=== PATIENT | female | born 1945 | race African-American/Black ===

== ENCOUNTER → 2016-06-12 | Outpatient (CLI) | payer OTHER ==
[2016-02-22 11:54] VITALS: BP 114/83
[~2016-06-12] MED LIST: ALLO300T PO; AMLO10TA2 PO; CALC600T4 PO; CHOL20004 PO; FURO-68 PO; FURO-69 PO; GLIP5TAB22 PO; LATA2.5D3 EACHEYE; LISI-334 PO; METF750T2 PO; METO25TA9 PO; POTA20TA82 PO; SACU1TAB PO
--- NOTE | 2016-06-12 15:31 | CARD ---
APPROVED REPORT EXAM: Two-dimensional and M-mode echocardiogram with Doppler and color Doppler. Other Information Quality : Average Rhythm : RBBB INDICATION Cardiomyopathy 2D DIMENSIONS Left Atrium(2D)5.0 (1.6-4.0cm)IVSd1.0 (0.7-1.1cm) Aortic Root(2D)3.1 (2.0-3.7cm)LVDd5.8 (3.9-5.9cm) LVOT Diameter2.0 (1.8-2.4cm)PWd1.0 (0.7-1.1cm) LVDs5.1 (2.5-4.0cm)FS (%) 11.0 % SV39.0 mlLVEF(%)23.6 (>50%) Aortic Valve AoV Peak Tim.130.8cm/sAoV VTI19.8cm AO Peak GR.6.8mmHgLVOT Peak Tim.60.9cm/s LVOT VTI 9.78cmAO Mean GR.4mmHg AI P 1/2 [id number] Mitral Valve MV E Peak Gr.99mmHgMV DECEL [id number] MV E Mean Gr.2mmHgMV [id number] MVA (PHT)3.89cm2 Tricuspid Valve TR P. Pqaxrhjl572pb/sRAP [id number] TR Peak Gr.41atZqLWQS98hrGp LEFT VENTRICLE The left ventricle is normal size. There is normal left ventricular wall thickness. Left ventricle sy stolic function is severely impaired. The Ejection Fraction is 20-25%. There is global hypokinesis of the left ventricle. Unable to assess diastolic function. RIGHT VENTRICLE The right ventricle is normal size. The right ventricular systolic function is normal. ATRIA The left atrium is moderately dilated. The right atrium size is normal. The interatrial septum is int act with no evidence for an atrial septal defect or patent foramen ovale as noted on 2-D or Doppler i maging. AORTIC VALVE The aortic valve is not well visualized. Doppler and Color Flow revealed moderate aortic regurgitatio n. There is no significant aortic valvular stenosis. MITRAL VALVE The mitral valve leaflets are thickened. There is no mitral valve stenosis. Doppler and Color Flow re vealed severe mitral regurgitation. TRICUSPID VALVE The tricuspid valve is normal in structure. Doppler and Color Flow revealed moderate tricuspid regurg itation. There is moderate to severe pulmonary hypertension. The PA pressure was estimated at 63 mmHg . There is no tricuspid valve stenosis. PULMONIC VALVE The pulmonic valve is not well visualized. Doppler and Color Flow revealed no pulmonic valvular regur gitation. GREAT VESSELS The aortic root is normal in size. Systolic flow reversal (suggestive of severe MR) in the pulmonary veins. The IVC is dilated and collapses <50% with inspiration. PERICARDIAL EFFUSION There is a trace pericardial effusion. Critical Notification Critical Value: No <Conclusion> Left ventricle systolic function is severely impaired. The Ejection Fraction is 20-25%. Moderate aortic regurgitation. Severe mitral regurgitation. Moderate tricuspid regurgitation. Moderate to severe pulmonary hypertension. The PA pressure was estimated at 63 mmHg. There is a trace pericardial effusion.
== END | disposition home or self-care (01) ==
LOC: ECHO 07:34
PROVIDERS: ATTEND Internal Medicine Cardiovascular Disease
DX: I42.9 Cardiomyopathy, unspecified (principal); I08.3 Combined rheumatic disorders of mitral, aortic and tricuspid valves; I27.2 Other secondary pulmonary hypertension; I31.3 Pericardial effusion (noninflammatory)
CPT/HCPCS: 93306

== ENCOUNTER → 2016-11-29 | Outpatient (CLI) | payer OTHER ==
[2016-11-13 11:00] VITALS: BP 99/59
[~2016-11-29] MED LIST changes: -CHOL20004 PO; +CHOL200074 PO; +METO-239 PO; -METO25TA9 PO
--- NOTE | 2016-11-29 15:44 | RAD ---
DATE: 11/29/2016 EXAM: DIGITAL SCREEN BILAT W/CAD HISTORY: Previous left breast cancer with implant COMPARISON: 10/31/2015 This study was interpreted with the benefit of Computerized Aided Detection (CAD). The breast parenchyma shows scattered fibroglandular densities. Breast parenchyma level B. FINDINGS: The left breast implant is unchanged. There is very little overlying breast tissue no left breast mass is seen. Diffuse skin thickening has developed on the right. The right breast parenchymal densities have generally increased. No discrete right breast mass is seen. There are benign type calcifications in the right breast. No malignant microcalcifications have developed. IMPRESSION: 1. Generalized increased parenchymal density has developed in the right breast as well as diffuse right breast skin thickening A systemic process such as congestive heart failure or anasarca is suspected. Mastitis or inflammatory breast cancer cannot be excluded. Clinical correlation and follow-up is suggested. 2. Stable postsurgical findings on the left. BI-RADS CATEGORY: 3 PROBABLY BENIGN FINDING(S)-SHORT INTERVAL FOLLOW-UP SUGGESTED RECOMMENDED FOLLOW-UP: CLIN FOLLOW UP IMAGING CLINICALLY INDICATED PQRS compliance statement: Patient information was entered into a reminder system with a target due date for the next mammogram. Mammography is a sensitive method for finding small breast cancers, but it does not detect them all and is not a substitute for careful clinical examination. A negative mammogram does not negate a clinically suspicious finding and should not result in delay in biopsying a clinically suspicious abnormality. "Our facility is accredited by the [employer] Mammography [employer]."
== END | disposition home or self-care (01) ==
LOC: MAMMO 13:24
PROVIDERS: ATTEND Internal Medicine Hematology & Oncology
DX: Z12.31 Encounter for screening mammogram for malignant neoplasm of breast (principal); Z85.3 Personal history of malignant neoplasm of breast
CPT/HCPCS: G0202; 77067

== ENCOUNTER → 2017-01-31 | Outpatient (CLI) | payer OTHER ==
[2016-11-13 11:00] VITALS: BP 99/59
--- NOTE | 2017-01-31 12:29 | KCIC ---
CT of the head without contrast 01/31/2017: HISTORY: Memory loss, possible CVA There is moderate cerebral atrophy. There are mild patchy lucencies in the deep white matter bilaterally compatible with chronic ischemic change. The ventricles are within normal limits in size. There is no shift of the midline structures. There is no evidence of acute intracranial hemorrhage or mass effect. IMPRESSION: 1. Cerebral atrophy. 2. Mild patchy deep white matter lucencies compatible with chronic ischemic change. 3. No acute intracranial abnormality is detected. Electronically signed by: Ebenezer Mendez MD (01/31/2017 12:26 PM) [facility]
== END | disposition home or self-care (01) ==
LOC: KCIC CT 10:31
PROVIDERS: ATTEND Family Medicine
DX: G31.9 Degenerative disease of nervous system, unspecified (principal); R90.82 White matter disease, unspecified
CPT/HCPCS: 70450

== ENCOUNTER → 2017-02-19 | Outpatient (CLI) | payer OTHER ==
[2017-02-07 23:36] VITALS: BP 114/71
[~2017-02-19] MED LIST changes: +FURO80TA72 PO; +PANT40TA5 PO
--- NOTE | 2017-02-19 15:48 | RAD ---
Renal sonography History: Chronic renal failure. Findings: The longitudinal and AP and transverse dimensions of the right kidney are 8.3 cm and 3.9 cm and 4.8 cm respectively. There is a cyst of the mid aspect of the right kidney measuring 1.2 cm in size. Increased cortical echogenicity of the right kidney is seen. The longitudinal and AP and transverse dimensions of the left kidney are 8.8 cm and 4.5 cm and 4.4 cm respectively. There is a prominent cyst of the mid aspect of the left kidney measuring 6.6 cm which extends laterally. There is another smaller cyst within the mid aspect measuring 1.5 cm. Increase in cortical echogenicity of the left kidney is seen. There is an echodensity within the lower pole of the left kidney consistent with a stone. This measures 5 mm in size. No hydronephrosis is seen on either side. The urinary bladder is moderately distended. No intraluminal echodensities or masses are seen. Before voiding, the urinary bladder volume is 333 cc. After voiding, the urinary bladder is empty. A small amount of ascites is present. IMPRESSION: No hydronephrosis on either side. Increase in cortical echogenicity of both kidneys may be seen with medical renal disease or older age. Bilateral renal cysts. Small amount of ascites.
== END | disposition home or self-care (01) ==
LOC: US 11:11
PROVIDERS: ATTEND Internal Medicine Nephrology
DX: N18.9 Chronic kidney disease, unspecified (principal); N28.1 Cyst of kidney, acquired; R18.8 Other ascites
CPT/HCPCS: 76770

== ENCOUNTER → 2017-03-01 | Outpatient (CLI) | payer OTHER, MEDICARE ==
[2017-03-01 13:26] LABS: ANION GAP 16 (6-14); BLOOD UREA NITROGEN 70 mg/dL (7-20); CALCIUM 9.3 mg/dL (8.5-10.1); CARBON DIOXIDE 21 mmol/L (21-32); CHLORIDE 107 mmol/L (98-107); CREATININE 3.3 mg/dL (0.6-1.0); GFR 16.6; GLUCOSE 122 mg/dL (70-99); MAGNESIUM 2.7 mg/dL (1.8-2.4); POTASSIUM 4.9 mmol/L (3.5-5.1); SODIUM 144 mmol/L (136-145)
== END ==
LOC: LAB 12:57
DX: I23.0 Hemopericardium as current complication following acute myocardial infarction (principal)
CPT/HCPCS: 36415; 80048; 83735

== ENCOUNTER 2017-03-06 09:46 | Inpatient (IN) | payer OTHER, MEDICARE ==
[2017-03-06 10:55] LABS: ADD MAN DIFF? NO
[2017-03-06 10:59] LABS: BASO % 1 % (0-3); EOS % 1 % (0-3); HEMATOCRIT 27.5 % (36.0-47.0); HEMOGLOBIN 8.6 g/dL (12.0-15.5); LYMPH # 0.9 x10^3/uL (1.0-4.8); LYMPH % 14 % (24-48); MEAN CORPUSCULAR HEMOGLOBIN 27 pg (25-35); MEAN CORPUSCULAR HGB CONC 31 g/dL (31-37); MEAN CORPUSCULAR VOLUME 87 fL (79-100); MONO # 0.4 x10^3/uL (0.0-1.1); MONO % 6 % (0-9); NEUT % 79 % (31-73); PLATELET COUNT 180 x10^3/uL (140-400); RED BLOOD COUNT 3.17 x10^6/uL (3.50-5.40); WHITE BLOOD COUNT 6.4 x10^3/uL (4.0-11.0)
[2017-03-06 11:17] LABS: ANION GAP 18 (6-14); BLOOD UREA NITROGEN 83 mg/dL (7-20); BUN/CREATININE RATIO 22 (6-20); CALCIUM 9.3 mg/dL (8.5-10.1); CARBON DIOXIDE 18 mmol/L (21-32); CHLORIDE 103 mmol/L (98-107); CREATININE 3.7 mg/dL (0.6-1.0); GFR 14.5; GLUCOSE 118 mg/dL (70-99); POTASSIUM 4.9 mmol/L (3.5-5.1); SODIUM 139 mmol/L (136-145)
[2017-03-06 11:25] LABS: ALBUMIN 3.1 g/dL (3.4-5.0); ALBUMIN/GLOBULIN RATIO 0.9 (1.0-1.7); ALK PHOS 142 U/L (46-116); ALT (SGPT) 20 U/L (14-59); AST (SGOT) 87 U/L (15-37); MAGNESIUM 2.9 mg/dL (1.8-2.4); TOTAL BILIRUBIN 1.6 mg/dL (0.2-1.0); TOTAL PROTEIN 6.7 g/dL (6.4-8.2)
[2017-03-06 11:27] LABS: TROPONINI 0.133 ng/mL (0.000-0.055)
[2017-03-06 11:28] LABS: NT-PRO BNP 19378 pg/mL (0-124)
[2017-03-06] MEDS ORDERED: ONDANSETRON PF 4 MG/2 ML VIAL. IV ×2 (12:00→14:30)
[2017-03-06 12:22] LABS: INFLUENZA A PATIENT NEGATIVE (NEGATIVE); INFLUENZA B PATIENT NEGATIVE (NEGATIVE); OBC FLU VALID
[2017-03-06] MEDS: fentaNYL PF VIAL 100 MCG/2 ML VIAL IV ×2 (12:30→19:49)
[2017-03-06] MEDS ORDERED: DEXTROSE 50% 25 GM / 50ML DISP.SYRIN. IV (14:30)
[2017-03-06] MEDS: PANTOPRAZOLE 40 MG TABLET.DR. PO (16:04)
[2017-03-06] MEDS: IV NORMAL SALINE 1000ML BAG 1,000 ML IV (16:04)
[2017-03-06] MEDS: INSULIN ASPART 300 UNITS/3 ML INSULN.PEN SQ (17:00)
[2017-03-06 17:13] LABS: POC GLUCOSE 88 mg/dL (70-99)
[2017-03-06 19:32] LABS: TROPONINI 0.147 ng/mL (0.000-0.055)
[2017-03-06] MEDS: MILRINONE 20MG/100ML PREMIX 100 ML IV (19:44)
[2017-03-06 21:22] LABS: POC GLUCOSE 122 mg/dL (70-99)
[2017-03-06 21:24] LABS: BILIRUBIN,URINE NEGATIVE (NEG); CLARITY,URINE CLEAR; COLOR,URINE YELLOW; GLUCOSE,URINE NEGATIVE (NEG); NITRITE,URINE NEGATIVE (NEG); PH,URINE 5.5; PROTEIN,URINE NEGATIVE (NEG-TRACE)
[2017-03-06 21:29] LABS: AMORPHOUS SEDIMENT,UR PRESENT /HPF; BACTERIA,URINE 0 /HPF (0-FEW); HYALINE CASTS, URINE MODERATE /HPF; RBC,URINE 0 /HPF (0-2); SQUAMOUS EPITHELIAL CELL,UR FEW /LPF; WBC,URINE 0 /HPF (0-4)
[2017-03-06] MEDS: oxyCODONE/APAP 5/325 1 TAB TABLET PO (21:56)
[2017-03-06] MEDS: LATANOPROST 0.005% OPHTH SOLUTION 2.5ML BOTTLE. OU (21:57)
[2017-03-07 01:00] LABS: TROPONINI 0.088 ng/mL (0.000-0.055)
[2017-03-07 05:04] LABS: ANION GAP 13 (6-14); BLOOD UREA NITROGEN 81 mg/dL (7-20); CALCIUM 8.6 mg/dL (8.5-10.1); CARBON DIOXIDE 20 mmol/L (21-32); CHLORIDE 105 mmol/L (98-107); CREATININE 3.7 mg/dL (0.6-1.0); GFR 14.5; GLUCOSE 125 mg/dL (70-99); POTASSIUM 4.5 mmol/L (3.5-5.1); SODIUM 138 mmol/L (136-145)
[2017-03-07] MEDS: IV NORMAL SALINE 1000ML BAG 1,000 ML IV ×3 (05:58→16:14)
[2017-03-07] MEDS ORDERED: glipiZIDE ER 2.5 MG TAB.ER.24 PO (08:00)
[2017-03-07 08:19] LABS: POC GLUCOSE 102 mg/dL (70-99)
[2017-03-07] MEDS: INSULIN ASPART 300 UNITS/3 ML INSULN.PEN SQ ×3 (09:46→16:50)
[2017-03-07] MEDS: CHOLECALCIFEROL (VITAMIN D3) 1,000 UNIT TABLET PO (10:17)
[2017-03-07] MEDS: ALLOPURINOL 300 MG TABLET. PO (10:17)
[2017-03-07] MEDS: CALCIUM CARBONATE 500 MG TABLET PO (10:17)
[2017-03-07] MEDS: oxyCODONE/APAP 5/325 1 TAB TABLET PO ×2 (10:17→20:42)
[2017-03-07] MEDS: PANTOPRAZOLE 40 MG TABLET.DR. PO ×2 (10:17→16:16)
[2017-03-07] MEDS: METOPROLOL SUCC 24HR ER 25 MG TAB.ER.24H. PO (10:19)
[2017-03-07 11:54] LABS: POC GLUCOSE 115 mg/dL (70-99)
[2017-03-07 15:22] LABS: INR 1.6 (0.8-1.1); PROTHROMBIN TIME PATIENT 18.2 SEC (11.7-14.0)
[2017-03-07 16:38] LABS: POC GLUCOSE 119 mg/dL (70-99)
[2017-03-07] MEDS ORDERED: FUROSEMIDE 40 MG/4 ML VIAL. IVP (17:30)
[2017-03-07 18:04] LABS: BILIRUBIN,URINE LARGE (NEG); COLOR,URINE RED; GLUCOSE,URINE NEGATIVE (NEG); NITRITE,URINE POSITIVE (NEG); PROTEIN,URINE 100 mg/dL (NEG-TRACE)
[2017-03-07 18:27] LABS: CLARITY,URINE BLOODY; RBC,URINE TNTC /HPF (0-2)
[2017-03-07 18:28] LABS: BACTERIA,URINE FEW /HPF (0-FEW); SQUAMOUS EPITHELIAL CELL,UR OCC /LPF
[2017-03-07] MEDS ORDERED: EPINEPHrine VIAL 8 MG in IV NORMAL SALINE 250ML 250 ML IV (18:30)
[2017-03-07] MEDS: FUROSEMIDE 40 MG/4 ML VIAL. IVP (20:42)
[2017-03-07] MEDS: LATANOPROST 0.005% OPHTH SOLUTION 2.5ML BOTTLE. OU (20:42)
[2017-03-07 21:10] LABS: POC GLUCOSE 106 mg/dL (70-99)
[2017-03-08] MEDS: MILRINONE 20MG/100ML PREMIX 100 ML IV (02:19)
[2017-03-08] MEDS: oxyCODONE/APAP 5/325 1 TAB TABLET PO ×2 (04:18→22:18)
[2017-03-08 08:00] LABS: POC GLUCOSE 65 mg/dL (70-99)
[2017-03-08] MEDS: INSULIN ASPART 300 UNITS/3 ML INSULN.PEN SQ (08:00)
[2017-03-08 08:19] LABS: POC GLUCOSE 60 mg/dL (70-99)
[2017-03-08 08:38] LABS: ANION GAP 12 (6-14); BLOOD UREA NITROGEN 74 mg/dL (7-20); CALCIUM 8.7 mg/dL (8.5-10.1); CARBON DIOXIDE 22 mmol/L (21-32); CHLORIDE 105 mmol/L (98-107); CREATININE 3.5 mg/dL (0.6-1.0); GFR 15.5; GLUCOSE 62 mg/dL (70-99); POTASSIUM 4.2 mmol/L (3.5-5.1); SODIUM 139 mmol/L (136-145)
[2017-03-08] MEDS: CHOLECALCIFEROL (VITAMIN D3) 1,000 UNIT TABLET PO (09:10)
[2017-03-08] MEDS: PANTOPRAZOLE 40 MG TABLET.DR. PO ×2 (09:10→16:30)
[2017-03-08] MEDS: ALLOPURINOL 300 MG TABLET. PO (09:10)
[2017-03-08] MEDS: CALCIUM CARBONATE 500 MG TABLET PO (09:11)
[2017-03-08] MEDS: METOPROLOL SUCC 24HR ER 25 MG TAB.ER.24H. PO (09:11)
[2017-03-08] MEDS: ACETAMINOPHEN 500 MG TABLET PO (09:11)
[2017-03-08 11:32] LABS: POC GLUCOSE 69 mg/dL (70-99)
[2017-03-08 11:40] LABS: CREATINE KINASE 177 U/L (26-192)
[2017-03-08] MEDS: tiZANidine 4 MG TABLET. PO ×2 (11:44→21:00)
[2017-03-08] MEDS ORDERED: NOREPINEPHRIN PREMIX 250 ML IV (17:30)
[2017-03-08] MEDS: NOREPINEPHRIN PREMIX 250 ML IV (19:54)
[2017-03-08] MEDS: LATANOPROST 0.005% OPHTH SOLUTION 2.5ML BOTTLE. OU (22:18)
[2017-03-09] MEDS: AMIODARONE 75 MG in IV DEXTROSE 5% 100 ML IV (00:27)
[2017-03-09] MEDS: AMIODARONE 900 MG in IV DEXTROSE 5% 500 ML IV (00:44)
[2017-03-09] MEDS: NOREPINEPHRIN PREMIX 250 ML IV (01:33)
[2017-03-09 04:37] LABS: BASE EXCESS ABG -7 mmol/L (-3-3); HCO3 ABG 18 mmol/L (21-28); PCO2 ABG 32 mmHg (35-46); SAT O2 ABG 76 % (92-99)
[2017-03-09 05:04] LABS: PO2 ABG 44 mmHg (65-108)
[2017-03-09 05:05] LABS: PH ABG 7.35 (7.35-7.45)
[2017-03-09 07:07] LABS: ADD MAN DIFF? NO
[2017-03-09 07:22] LABS: BASO % 0 % (0-3); EOS # 0.1 x10^3/uL (0.0-0.7); EOS % 1 % (0-3); HEMOGLOBIN 8.4 g/dL (12.0-15.5); LYMPH # 0.6 x10^3/uL (1.0-4.8); LYMPH % 6 % (24-48); MEAN CORPUSCULAR HEMOGLOBIN 27 pg (25-35); MEAN CORPUSCULAR HGB CONC 30 g/dL (31-37); MEAN CORPUSCULAR VOLUME 89 fL (79-100); MONO # 0.9 x10^3/uL (0.0-1.1); MONO % 8 % (0-9); NEUT # 9.3 x10^3uL (1.8-7.7); NEUT % 85 % (31-73); PLATELET COUNT 155 x10^3/uL (140-400); RED BLOOD COUNT 3.14 x10^6/uL (3.50-5.40); RED CELL DISTRIBUTION WIDTH 20.5 % (11.5-14.5)
[2017-03-09 07:27] LABS: ANION GAP 14 (6-14); BLOOD UREA NITROGEN 78 mg/dL (7-20); CALCIUM 8.8 mg/dL (8.5-10.1); CARBON DIOXIDE 20 mmol/L (21-32); CHLORIDE 103 mmol/L (98-107); CREATININE 3.5 mg/dL (0.6-1.0); GFR 15.5; GLUCOSE 131 mg/dL (70-99); POTASSIUM 4.5 mmol/L (3.5-5.1); SODIUM 137 mmol/L (136-145)
[2017-03-09 07:36] LABS: LACTIC ACID 1.2 mmol/L (0.4-2.0)
[2017-03-09] MEDS: METOPROLOL SUCC 24HR ER 25 MG TAB.ER.24H. PO (09:00)
[2017-03-09] MEDS: CHOLECALCIFEROL (VITAMIN D3) 1,000 UNIT TABLET PO (09:06)
[2017-03-09] MEDS: tiZANidine 4 MG TABLET. PO ×3 (09:06→21:43)
[2017-03-09] MEDS: ALLOPURINOL 300 MG TABLET. PO (09:06)
[2017-03-09] MEDS: PANTOPRAZOLE 40 MG TABLET.DR. PO ×2 (09:06→18:29)
[2017-03-09] MEDS: CALCIUM CARBONATE 500 MG TABLET PO (09:07)
[2017-03-09 12:58] LABS: POC GLUCOSE 133 mg/dL (70-99)
[2017-03-09] MEDS: MILRINONE 20MG/100ML PREMIX 100 ML IV (18:27)
[2017-03-09] MEDS: LATANOPROST 0.005% OPHTH SOLUTION 2.5ML BOTTLE. OU (21:43)
[2017-03-10 00:07] LABS: MRSA BY PCR Negative (Negative)
[2017-03-10] MEDS: AMIODARONE 900 MG in IV DEXTROSE 5% 500 ML IV (02:12)
[2017-03-10 06:45] LABS: POC GLUCOSE 172 mg/dL (70-99)
[2017-03-10] MEDS ORDERED: ONDANSETRON PF 4 MG/2 ML VIAL. IV (08:15)
[2017-03-10] MEDS: CALCIUM CARBONATE 500 MG TABLET PO (09:05)
[2017-03-10] MEDS: PANTOPRAZOLE 40 MG TABLET.DR. PO ×2 (09:05→16:30)
[2017-03-10] MEDS: ALLOPURINOL 300 MG TABLET. PO (09:05)
[2017-03-10] MEDS: tiZANidine 4 MG TABLET. PO ×3 (09:05→21:08)
[2017-03-10] MEDS: CHOLECALCIFEROL (VITAMIN D3) 1,000 UNIT TABLET PO (09:05)
[2017-03-10] MEDS: SODIUM BICARBONATE 650 MG TABLET. PO ×3 (10:00→21:08)
[2017-03-10] MEDS: DOCUSATE SODIUM 100 MG CAPSULE. PO ×2 (10:00→21:08)
[2017-03-10] MEDS ORDERED: BISACODYL 10 MG SUPP.RECT. PR (10:00)
[2017-03-10] MEDS: MORPHINE SULFATE 2 MG/ML DISP.SYRIN. IV (11:32)
[2017-03-10] MEDS: FUROSEMIDE 40 MG/4 ML VIAL. IVP ×2 (12:00→18:39)
[2017-03-10] MEDS: LIDOCAINE WITH 8.4% SOD BICARB 3 ML DISP.SYRIN. IJ (13:00)
[2017-03-10] MEDS ORDERED: LIDOCAINE WITH 8.4% SOD BICARB 3 ML DISP.SYRIN. IJ (13:57)
[2017-03-10] MEDS ORDERED: HEPARIN for IV BOLUS 10,000 UNIT/10 ML VIAL. (13:58)
[2017-03-10] MEDS ORDERED: HEPARIN PF for SUB-Q USE 5,000 UNIT/0.5 ML VIAL. SQ (14:00)
[2017-03-10] MEDS: cefTRIAXone IV Push 1 GM VIAL. IVP (18:29)
[2017-03-10] MEDS: HEPARIN PF for SUB-Q USE 5,000 UNIT/0.5 ML VIAL. SQ ×2 (18:34→21:18)
[2017-03-10 18:44] LABS: BASO % 0 % (0-3); EOS # 0.1 x10^3/uL (0.0-0.7); EOS % 2 % (0-3); HEMATOCRIT 24.9 % (36.0-47.0); HEMOGLOBIN 7.8 g/dL (12.0-15.5); LYMPH # 0.4 x10^3/uL (1.0-4.8); LYMPH % 6 % (24-48); MEAN CORPUSCULAR HEMOGLOBIN 27 pg (25-35); MEAN CORPUSCULAR HGB CONC 32 g/dL (31-37); MEAN CORPUSCULAR VOLUME 86 fL (79-100); MONO # 0.5 x10^3/uL (0.0-1.1); MONO % 7 % (0-9); NEUT # 5.9 x10^3uL (1.8-7.7); NEUT % 85 % (31-73); PLATELET COUNT 118 x10^3/uL (140-400); RED BLOOD COUNT 2.89 x10^6/uL (3.50-5.40); RED CELL DISTRIBUTION WIDTH 19.9 % (11.5-14.5); WHITE BLOOD COUNT 6.9 x10^3/uL (4.0-11.0)
[2017-03-10 18:45] LABS: ADD MAN DIFF? YES
[2017-03-10 18:52] LABS: INR 1.4 (0.8-1.1); PROTHROMBIN TIME PATIENT 16.1 SEC (11.7-14.0)
[2017-03-10 19:00] LABS: ANION GAP 11 (6-14); BLOOD UREA NITROGEN 69 mg/dL (7-20); CALCIUM 7.7 mg/dL (8.5-10.1); CARBON DIOXIDE 21 mmol/L (21-32); CHLORIDE 106 mmol/L (98-107); GFR 18.5; GLUCOSE 127 mg/dL (70-99); MAGNESIUM 2.4 mg/dL (1.8-2.4); PHOSPHORUS 4.4 mg/dL (2.6-4.7); POTASSIUM 3.6 mmol/L (3.5-5.1); SODIUM 138 mmol/L (136-145)
[2017-03-10 19:52] LABS: % BANDS 10 % (0-9); % EOS 1 % (0-5); % LYMPHS 1 % (24-48); % SEGS 88 % (35-66); HYPOCHROMIA SLIGHT; MICROCYTOSIS SLIGHT; PLT ESTIMATE DECREASED (ADEQUATE); POIKILOCYTOSIS SLIGHT; POLYCHROMASIA SLIGHT
[2017-03-10 19:53] LABS: BURR CELLS OCC; OVALOCYTES OCC; SCHISTOCYTES OCC; TARGET CELLS OCC
[2017-03-10 19:54] LABS: ROULEAUX PRESENT
[2017-03-10] MEDS: IV NORMAL SALINE 1000ML BAG 1,000 ML MC ×2 (21:08→21:09)
[2017-03-10] MEDS: LATANOPROST 0.005% OPHTH SOLUTION 2.5ML BOTTLE. OU (21:08)
[2017-03-10] MEDS: MILRINONE 20MG/100ML PREMIX 100 ML IV (22:18)
[2017-03-11] MEDS: IV NORMAL SALINE 1000ML BAG 1,000 ML MC ×12 (01:58→23:15)
[2017-03-11 05:49] LABS: ADD MAN DIFF? NO
[2017-03-11 06:02] LABS: MAGNESIUM 2.3 mg/dL (1.8-2.4)
[2017-03-11 06:13] LABS: BASO % 1 % (0-3); EOS # 0.1 x10^3/uL (0.0-0.7); EOS % 2 % (0-3); HEMATOCRIT 22.6 % (36.0-47.0); HEMOGLOBIN 7.1 g/dL (12.0-15.5); LYMPH # 0.4 x10^3/uL (1.0-4.8); LYMPH % 7 % (24-48); MEAN CORPUSCULAR HEMOGLOBIN 26 pg (25-35); MEAN CORPUSCULAR HGB CONC 31 g/dL (31-37); MEAN CORPUSCULAR VOLUME 84 fL (79-100); MONO # 0.4 x10^3/uL (0.0-1.1); MONO % 7 % (0-9); NEUT # 4.1 x10^3uL (1.8-7.7); NEUT % 83 % (31-73); PLATELET COUNT 105 x10^3/uL (140-400); RED BLOOD COUNT 2.69 x10^6/uL (3.50-5.40); RED CELL DISTRIBUTION WIDTH 19.7 % (11.5-14.5); WHITE BLOOD COUNT 4.9 x10^3/uL (4.0-11.0)
[2017-03-11] MEDS: DOCUSATE SODIUM 100 MG CAPSULE. PO ×2 (07:35→20:56)
[2017-03-11] MEDS: CHOLECALCIFEROL (VITAMIN D3) 1,000 UNIT TABLET PO (07:35)
[2017-03-11] MEDS: SODIUM BICARBONATE 650 MG TABLET. PO ×3 (07:35→20:56)
[2017-03-11] MEDS: PANTOPRAZOLE 40 MG TABLET.DR. PO ×2 (07:35→16:30)
[2017-03-11] MEDS: CALCIUM CARBONATE 500 MG TABLET PO (07:36)
[2017-03-11] MEDS: tiZANidine 4 MG TABLET. PO ×3 (07:36→20:56)
[2017-03-11] MEDS: ALLOPURINOL 300 MG TABLET. PO (07:36)
[2017-03-11] MEDS: MORPHINE SULFATE 2 MG/ML DISP.SYRIN. IV ×2 (07:37→18:45)
[2017-03-11] MEDS: HEPARIN PF for SUB-Q USE 5,000 UNIT/0.5 ML VIAL. SQ ×2 (07:40→20:58)
[2017-03-11 07:59] LABS: ALBUMIN 1.9 g/dL (3.4-5.0); ANION GAP 13 (6-14); BLOOD UREA NITROGEN 64 mg/dL (7-20); CALCIUM 7.6 mg/dL (8.5-10.1); CARBON DIOXIDE 18 mmol/L (21-32); CHLORIDE 106 mmol/L (98-107); CREATININE 2.9 mg/dL (0.6-1.0); GFR 19.2; GLUCOSE 106 mg/dL (70-99); PHOSPHORUS 4.6 mg/dL (2.6-4.7); POTASSIUM 3.8 mmol/L (3.5-5.1); SODIUM 137 mmol/L (136-145)
[2017-03-11] MEDS: cefTRIAXone IV Push 1 GM VIAL. IVP (18:45)
[2017-03-11] MEDS: LACTOBACILLUS RHAMNOSUS GG 1 CAPSULE. PO (20:56)
[2017-03-11] MEDS: DARBEPOETIN ALFA 60 MCG/0.3 ML DISP.SYRIN. SQ (20:56)
[2017-03-11] MEDS: LATANOPROST 0.005% OPHTH SOLUTION 2.5ML BOTTLE. OU (20:57)
[2017-03-11] MEDS: NOREPINEPHRIN PREMIX 250 ML IV (20:58)
[2017-03-12] MEDS: IV NORMAL SALINE 1000ML BAG 1,000 ML MC ×10 (00:07→23:22)
[2017-03-12] MEDS: MORPHINE SULFATE 2 MG/ML DISP.SYRIN. IV (00:08)
[2017-03-12 01:13] LABS: HEP B SURFACE ABDY Reactive (.); HEP B SURFACE AG Negative (Negative)
[2017-03-12] MEDS: MILRINONE 20MG/100ML PREMIX 100 ML IV (03:03)
[2017-03-12 05:32] LABS: ADD MAN DIFF? NO
[2017-03-12 05:57] LABS: BASO % 1 % (0-3); EOS # 0.1 x10^3/uL (0.0-0.7); EOS % 1 % (0-3); HEMATOCRIT 23.6 % (36.0-47.0); HEMOGLOBIN 7.3 g/dL (12.0-15.5); LYMPH # 0.6 x10^3/uL (1.0-4.8); LYMPH % 10 % (24-48); MEAN CORPUSCULAR HEMOGLOBIN 27 pg (25-35); MEAN CORPUSCULAR HGB CONC 31 g/dL (31-37); MEAN CORPUSCULAR VOLUME 87 fL (79-100); MONO # 0.5 x10^3/uL (0.0-1.1); MONO % 8 % (0-9); NEUT % 80 % (31-73); PLATELET COUNT 102 x10^3/uL (140-400); RED BLOOD COUNT 2.73 x10^6/uL (3.50-5.40); RED CELL DISTRIBUTION WIDTH 20.2 % (11.5-14.5); WHITE BLOOD COUNT 6.2 x10^3/uL (4.0-11.0)
[2017-03-12 06:04] LABS: ALBUMIN/GLOBULIN RATIO 0.6 (1.0-1.7); ALK PHOS 130 U/L (46-116); ALT (SGPT) 11 U/L (14-59); ANION GAP 14 (6-14); AST (SGOT) 28 U/L (15-37); BLOOD UREA NITROGEN 57 mg/dL (7-20); BUN/CREATININE RATIO 21 (6-20); CALCIUM 7.4 mg/dL (8.5-10.1); CARBON DIOXIDE 15 mmol/L (21-32); CHLORIDE 110 mmol/L (98-107); CREATININE 2.7 mg/dL (0.6-1.0); GFR 20.9; GLUCOSE 74 mg/dL (70-99); POTASSIUM 3.4 mmol/L (3.5-5.1); SODIUM 139 mmol/L (136-145); TOTAL BILIRUBIN 0.8 mg/dL (0.2-1.0); TOTAL PROTEIN 5.4 g/dL (6.4-8.2)
[2017-03-12] MEDS: POTASSIUM CHLORIDE 20 MEQ TABLET.ER. PO (08:48)
[2017-03-12] MEDS: CHOLECALCIFEROL (VITAMIN D3) 1,000 UNIT TABLET PO (08:48)
[2017-03-12] MEDS: ALLOPURINOL 300 MG TABLET. PO (08:48)
[2017-03-12] MEDS: DOCUSATE SODIUM 100 MG CAPSULE. PO ×2 (08:48→20:54)
[2017-03-12] MEDS: LACTOBACILLUS RHAMNOSUS GG 1 CAPSULE. PO ×2 (08:48→20:54)
[2017-03-12] MEDS: PANTOPRAZOLE 40 MG TABLET.DR. PO ×2 (08:48→16:30)
[2017-03-12] MEDS: CALCIUM CARBONATE 500 MG TABLET PO (08:49)
[2017-03-12] MEDS: tiZANidine 4 MG TABLET. PO ×3 (08:49→20:55)
[2017-03-12] MEDS: SODIUM BICARBONATE 650 MG TABLET. PO ×3 (08:51→20:54)
[2017-03-12] MEDS ORDERED: POTASSIUM CHLORIDE 20MEQ 50 ML IV (11:00)
[2017-03-12] MEDS ORDERED: MAGNESIUM SULFATE 2GM 50 ML IV (11:00)
[2017-03-12 11:09] LABS: POC GLUCOSE 55 mg/dL (70-99)
[2017-03-12] MEDS: cefTRIAXone IV Push 1 GM VIAL. IVP (13:14)
[2017-03-12] MEDS: DEXTROSE 5% IV ×3 (13:15→22:33)
[2017-03-12] MEDS: SODIUM BICARBONATE IV ×3 (13:15→22:33)
[2017-03-12] MEDS: HEPARIN PF for SUB-Q USE 5,000 UNIT/0.5 ML VIAL. SQ ×2 (13:16→20:57)
[2017-03-12 13:50] LABS: POTASSIUM 3.4 mmol/L (3.5-5.1)
[2017-03-12 18:33] LABS: POC GLUCOSE 158 mg/dL (70-99)
[2017-03-12 19:28] LABS: POTASSIUM 3.3 mmol/L (3.5-5.1)
[2017-03-12] MEDS: POTASSIUM CHLORIDE 20MEQ 50 ML IV ×2 (20:45→21:44)
[2017-03-12] MEDS: NOREPINEPHRIN PREMIX 250 ML IV (20:54)
[2017-03-12] MEDS: LATANOPROST 0.005% OPHTH SOLUTION 2.5ML BOTTLE. OU (21:30)
[2017-03-13 00:13] LABS: POC GLUCOSE 184 mg/dL (70-99)
[2017-03-13 00:26] LABS: POTASSIUM 3.5 mmol/L (3.5-5.1)
[2017-03-13] MEDS: POTASSIUM CHLORIDE 20MEQ 50 ML IV ×2 (02:00→03:15)
[2017-03-13] MEDS: IV NORMAL SALINE 1000ML BAG 1,000 ML MC ×2 (02:12→04:55)
[2017-03-13] MEDS: DEXTROSE 5% IV (03:39)
[2017-03-13] MEDS: SODIUM BICARBONATE IV (03:39)
[2017-03-13 05:49] LABS: POC GLUCOSE 173 mg/dL (70-99)
[2017-03-13 06:54] LABS: MAGNESIUM 1.9 mg/dL (1.8-2.4)
[2017-03-13 07:31] LABS: HEMATOCRIT 24.5 % (36.0-47.0); HEMOGLOBIN 7.6 g/dL (12.0-15.5); MEAN CORPUSCULAR HEMOGLOBIN 26 pg (25-35); MEAN CORPUSCULAR HGB CONC 31 g/dL (31-37); MEAN CORPUSCULAR VOLUME 84 fL (79-100); PLATELET COUNT 96 x10^3/uL (140-400); RED BLOOD COUNT 2.93 x10^6/uL (3.50-5.40); RED CELL DISTRIBUTION WIDTH 20.3 % (11.5-14.5); WHITE BLOOD COUNT 6.2 x10^3/uL (4.0-11.0)
[2017-03-13 07:39] LABS: ANION GAP 12 (6-14); BLOOD UREA NITROGEN 49 mg/dL (7-20); CALCIUM 8.2 mg/dL (8.5-10.1); CARBON DIOXIDE 18 mmol/L (21-32); CHLORIDE 112 mmol/L (98-107); CREATININE 2.4 mg/dL (0.6-1.0); GFR 23.9; GLUCOSE 192 mg/dL (70-99); PHOSPHORUS 3.4 mg/dL (2.6-4.7); SODIUM 142 mmol/L (136-145)
[2017-03-13] MEDS: LACTOBACILLUS RHAMNOSUS GG 1 CAPSULE. PO ×2 (08:39→21:08)
[2017-03-13] MEDS: SODIUM BICARBONATE 650 MG TABLET. PO ×4 (08:39→21:10)
[2017-03-13] MEDS: CHOLECALCIFEROL (VITAMIN D3) 1,000 UNIT TABLET PO (08:39)
[2017-03-13] MEDS: DOCUSATE SODIUM 100 MG CAPSULE. PO ×2 (08:40→21:10)
[2017-03-13] MEDS: PANTOPRAZOLE 40 MG TABLET.DR. PO ×2 (08:40→18:02)
[2017-03-13] MEDS: tiZANidine 4 MG TABLET. PO ×3 (08:40→21:10)
[2017-03-13] MEDS: CALCIUM CARBONATE 500 MG TABLET PO (08:40)
[2017-03-13] MEDS: ALLOPURINOL 300 MG TABLET. PO (08:40)
[2017-03-13] MEDS: HEPARIN PF for SUB-Q USE 5,000 UNIT/0.5 ML VIAL. SQ ×2 (08:43→21:11)
[2017-03-13] MEDS: cefTRIAXone IV Push 1 GM VIAL. IVP (12:16)
[2017-03-13] MEDS: FUROSEMIDE 40 MG/4 ML VIAL. IVP ×2 (14:32→21:10)
[2017-03-13] MEDS: LATANOPROST 0.005% OPHTH SOLUTION 2.5ML BOTTLE. OU (21:10)
[2017-03-14 05:55] LABS: ADD MAN DIFF? NO
[2017-03-14 06:19] LABS: BASO # 0.1 x10^3/uL (0.0-0.2); BASO % 1 % (0-3); EOS # 0.1 x10^3/uL (0.0-0.7); EOS % 2 % (0-3); HEMATOCRIT 26.1 % (36.0-47.0); LYMPH % 16 % (24-48); MEAN CORPUSCULAR HEMOGLOBIN 26 pg (25-35); MEAN CORPUSCULAR HGB CONC 31 g/dL (31-37); MEAN CORPUSCULAR VOLUME 83 fL (79-100); MONO # 0.6 x10^3/uL (0.0-1.1); MONO % 10 % (0-9); NEUT # 4.3 x10^3uL (1.8-7.7); NEUT % 71 % (31-73); PLATELET COUNT 78 x10^3/uL (140-400); RED BLOOD COUNT 3.13 x10^6/uL (3.50-5.40); RED CELL DISTRIBUTION WIDTH 20.4 % (11.5-14.5); WHITE BLOOD COUNT 6.1 x10^3/uL (4.0-11.0)
[2017-03-14] MEDS: tiZANidine 4 MG TABLET. PO ×3 (08:42→21:44)
[2017-03-14] MEDS: PANTOPRAZOLE 40 MG TABLET.DR. PO ×2 (08:42→16:51)
[2017-03-14] MEDS: CALCIUM CARBONATE 500 MG TABLET PO (08:42)
[2017-03-14] MEDS: LACTOBACILLUS RHAMNOSUS GG 1 CAPSULE. PO ×2 (08:42→21:44)
[2017-03-14] MEDS: SODIUM BICARBONATE 650 MG TABLET. PO ×3 (08:42→21:44)
[2017-03-14] MEDS: ALLOPURINOL 300 MG TABLET. PO (08:42)
[2017-03-14] MEDS: CHOLECALCIFEROL (VITAMIN D3) 1,000 UNIT TABLET PO (08:42)
[2017-03-14] MEDS: FUROSEMIDE 40 MG/4 ML VIAL. IVP (08:43)
[2017-03-14] MEDS: HEPARIN PF for SUB-Q USE 5,000 UNIT/0.5 ML VIAL. SQ ×2 (08:46→21:49)
[2017-03-14] MEDS: DOCUSATE SODIUM 100 MG CAPSULE. PO ×2 (08:52→21:44)
[2017-03-14] MEDS ORDERED: METOPROLOL SUCC 24HR ER 25 MG TAB.ER.24H. PO (09:00)
[2017-03-14 09:39] LABS: MAGNESIUM 1.9 mg/dL (1.8-2.4)
[2017-03-14 09:44] LABS: ALBUMIN 1.9 g/dL (3.4-5.0); ALBUMIN/GLOBULIN RATIO 0.5 (1.0-1.7); ALK PHOS 141 U/L (46-116); ALT (SGPT) 9 U/L (14-59); ANION GAP 13 (6-14); AST (SGOT) 28 U/L (15-37); BLOOD UREA NITROGEN 44 mg/dL (7-20); BUN/CREATININE RATIO 19 (6-20); CALCIUM 8.5 mg/dL (8.5-10.1); CARBON DIOXIDE 18 mmol/L (21-32); CHLORIDE 109 mmol/L (98-107); CREATININE 2.3 mg/dL (0.6-1.0); GFR 25.1; GLUCOSE 141 mg/dL (70-99); POTASSIUM 3.9 mmol/L (3.5-5.1); SODIUM 140 mmol/L (136-145); TOTAL BILIRUBIN 0.8 mg/dL (0.2-1.0); TOTAL PROTEIN 5.5 g/dL (6.4-8.2)
[2017-03-14] MEDS: cefTRIAXone IV Push 1 GM VIAL. IVP (12:05)
[2017-03-14] MEDS: FUROSEMIDE INJ 100 MG in IV NORMAL SALINE 100ML 100 ML IV (12:05)
[2017-03-14] MEDS ORDERED: LIDOCAINE WITH 8.4% SOD BICARB 3 ML DISP.SYRIN. IJ (13:54)
[2017-03-14] MEDS: LIDOCAINE WITH 8.4% SOD BICARB 3 ML DISP.SYRIN. IJ (14:28)
[2017-03-14 17:05] LABS: POC GLUCOSE 151 mg/dL (70-99)
[2017-03-14] MEDS: LATANOPROST 0.005% OPHTH SOLUTION 2.5ML BOTTLE. OU (21:54)
[2017-03-14 22:02] LABS: POC GLUCOSE 169 mg/dL (70-99)
[2017-03-15 01:07] LABS: POTASSIUM 3.7 mmol/L (3.5-5.1)
[2017-03-15 06:46] LABS: POTASSIUM 3.8 mmol/L (3.5-5.1)
[2017-03-15 07:10] LABS: MAGNESIUM 1.7 mg/dL (1.8-2.4)
[2017-03-15 08:28] LABS: POC GLUCOSE 144 mg/dL (70-99)
[2017-03-15] MEDS: PANTOPRAZOLE 40 MG TABLET.DR. PO ×2 (08:42→16:30)
[2017-03-15] MEDS: FUROSEMIDE INJ 100 MG in IV NORMAL SALINE 100ML 100 ML IV (08:42)
[2017-03-15] MEDS: SODIUM BICARBONATE 650 MG TABLET. PO ×3 (08:43→22:12)
[2017-03-15] MEDS: CALCIUM CARBONATE 500 MG TABLET PO (08:43)
[2017-03-15] MEDS: tiZANidine 4 MG TABLET. PO ×3 (08:43→22:12)
[2017-03-15] MEDS: CHOLECALCIFEROL (VITAMIN D3) 1,000 UNIT TABLET PO (08:43)
[2017-03-15] MEDS: DOCUSATE SODIUM 100 MG CAPSULE. PO ×2 (08:43→22:12)
[2017-03-15] MEDS: ALLOPURINOL 300 MG TABLET. PO (08:43)
[2017-03-15] MEDS: LACTOBACILLUS RHAMNOSUS GG 1 CAPSULE. PO ×2 (08:43→22:12)
[2017-03-15] MEDS: HEPARIN PF for SUB-Q USE 5,000 UNIT/0.5 ML VIAL. SQ ×2 (08:50→22:20)
[2017-03-15] MEDS: CEFPODOXIME PROXETIL 100 MG TABLET. PO (13:10)
[2017-03-15 14:03] LABS: POTASSIUM 3.6 mmol/L (3.5-5.1)
[2017-03-15] MEDS: POTASSIUM CHLORIDE 20MEQ 50 ML IV (15:25)
[2017-03-15 16:12] LABS: POC GLUCOSE 147 mg/dL (70-99)
[2017-03-15 16:25] LABS: POC GLUCOSE 183 mg/dL (70-99)
[2017-03-15 20:34] LABS: POTASSIUM 3.8 mmol/L (3.5-5.1)
[2017-03-15 21:17] LABS: POC GLUCOSE 158 mg/dL (70-99)
[2017-03-15] MEDS: LATANOPROST 0.005% OPHTH SOLUTION 2.5ML BOTTLE. OU (22:11)
[2017-03-16 05:44] LABS: ADD MAN DIFF? NO
[2017-03-16 06:06] LABS: BASO % 1 % (0-3); EOS # 0.2 x10^3/uL (0.0-0.7); EOS % 3 % (0-3); HEMATOCRIT 23.9 % (36.0-47.0); HEMOGLOBIN 7.6 g/dL (12.0-15.5); LYMPH # 1.1 x10^3/uL (1.0-4.8); LYMPH % 21 % (24-48); MEAN CORPUSCULAR HEMOGLOBIN 27 pg (25-35); MEAN CORPUSCULAR HGB CONC 32 g/dL (31-37); MEAN CORPUSCULAR VOLUME 84 fL (79-100); MONO # 0.5 x10^3/uL (0.0-1.1); MONO % 9 % (0-9); NEUT # 3.6 x10^3uL (1.8-7.7); NEUT % 67 % (31-73); PLATELET COUNT 91 x10^3/uL (140-400); RED BLOOD COUNT 2.85 x10^6/uL (3.50-5.40); RED CELL DISTRIBUTION WIDTH 20.5 % (11.5-14.5); WHITE BLOOD COUNT 5.5 x10^3/uL (4.0-11.0)
[2017-03-16 06:34] LABS: ALBUMIN 1.8 g/dL (3.4-5.0); ALBUMIN/GLOBULIN RATIO 0.5 (1.0-1.7); ALK PHOS 141 U/L (46-116); ALT (SGPT) 9 U/L (14-59); ANION GAP 9 (6-14); AST (SGOT) 21 U/L (15-37); BLOOD UREA NITROGEN 45 mg/dL (7-20); BUN/CREATININE RATIO 19 (6-20); CALCIUM 8.3 mg/dL (8.5-10.1); CARBON DIOXIDE 23 mmol/L (21-32); CHLORIDE 108 mmol/L (98-107); CREATININE 2.4 mg/dL (0.6-1.0); GFR 23.9; GLUCOSE 153 mg/dL (70-99); POTASSIUM 3.8 mmol/L (3.5-5.1); SODIUM 140 mmol/L (136-145); TOTAL BILIRUBIN 0.7 mg/dL (0.2-1.0); TOTAL PROTEIN 5.2 g/dL (6.4-8.2)
[2017-03-16 06:53] LABS: MAGNESIUM 1.7 mg/dL (1.8-2.4)
[2017-03-16] MEDS: SODIUM BICARBONATE 650 MG TABLET. PO ×3 (08:42→22:16)
[2017-03-16] MEDS: CALCIUM CARBONATE 500 MG TABLET PO (08:42)
[2017-03-16] MEDS: LACTOBACILLUS RHAMNOSUS GG 1 CAPSULE. PO ×2 (08:42→22:16)
[2017-03-16] MEDS: ALLOPURINOL 300 MG TABLET. PO (08:42)
[2017-03-16] MEDS: PANTOPRAZOLE 40 MG TABLET.DR. PO ×2 (08:42→15:49)
[2017-03-16] MEDS: DOCUSATE SODIUM 100 MG CAPSULE. PO ×2 (08:42→22:16)
[2017-03-16] MEDS: CHOLECALCIFEROL (VITAMIN D3) 1,000 UNIT TABLET PO (08:42)
[2017-03-16] MEDS: tiZANidine 4 MG TABLET. PO ×3 (08:42→22:17)
[2017-03-16] MEDS: HEPARIN PF for SUB-Q USE 5,000 UNIT/0.5 ML VIAL. SQ ×2 (08:44→22:18)
[2017-03-16] MEDS: CEFPODOXIME PROXETIL 100 MG TABLET. PO (08:48)
[2017-03-16 11:36] LABS: POC GLUCOSE 113 mg/dL (70-99)
[2017-03-16 11:36] LABS: POC GLUCOSE 205 mg/dL (70-99)
[2017-03-16] MEDS: FUROSEMIDE 40 MG TABLET. PO (14:00)
[2017-03-16] MEDS: MAGNESIUM SULFATE 2GM 50 ML IV (15:49)
[2017-03-16 20:57] LABS: POC GLUCOSE 164 mg/dL (70-99)
[2017-03-16] MEDS: LATANOPROST 0.005% OPHTH SOLUTION 2.5ML BOTTLE. OU (22:20)
[2017-03-16 23:44] LABS: POTASSIUM 3.8 mmol/L (3.5-5.1)
[2017-03-17 05:39] LABS: ANION GAP 11 (6-14); BLOOD UREA NITROGEN 45 mg/dL (7-20); CALCIUM 7.8 mg/dL (8.5-10.1); CARBON DIOXIDE 23 mmol/L (21-32); CHLORIDE 106 mmol/L (98-107); CREATININE 2.2 mg/dL (0.6-1.0); GFR 26.5; GLUCOSE 182 mg/dL (70-99); POTASSIUM 3.7 mmol/L (3.5-5.1); SODIUM 140 mmol/L (136-145)
[2017-03-17 08:08] LABS: POC GLUCOSE 149 mg/dL (70-99)
[2017-03-17] MEDS: CEFPODOXIME PROXETIL 100 MG TABLET. PO (08:16)
[2017-03-17] MEDS: PANTOPRAZOLE 40 MG TABLET.DR. PO ×2 (08:16→16:45)
[2017-03-17] MEDS: DOCUSATE SODIUM 100 MG CAPSULE. PO ×2 (08:16→20:17)
[2017-03-17] MEDS: LACTOBACILLUS RHAMNOSUS GG 1 CAPSULE. PO ×2 (08:16→20:17)
[2017-03-17] MEDS: tiZANidine 4 MG TABLET. PO ×3 (08:16→20:16)
[2017-03-17] MEDS: SODIUM BICARBONATE 650 MG TABLET. PO ×3 (08:16→20:16)
[2017-03-17] MEDS: CHOLECALCIFEROL (VITAMIN D3) 1,000 UNIT TABLET PO (08:16)
[2017-03-17] MEDS: CALCIUM CARBONATE 500 MG TABLET PO (08:17)
[2017-03-17] MEDS: ALLOPURINOL 300 MG TABLET. PO (08:17)
[2017-03-17] MEDS: FUROSEMIDE 40 MG TABLET. PO ×2 (08:17→14:19)
[2017-03-17] MEDS: HEPARIN PF for SUB-Q USE 5,000 UNIT/0.5 ML VIAL. SQ ×2 (08:27→20:53)
[2017-03-17 10:52] LABS: POC GLUCOSE 188 mg/dL (70-99)
[2017-03-17 16:38] LABS: POC GLUCOSE 174 mg/dL (70-99)
[2017-03-17 18:29] LABS: POTASSIUM 3.7 mmol/L (3.5-5.1)
[2017-03-17] MEDS: LATANOPROST 0.005% OPHTH SOLUTION 2.5ML BOTTLE. OU (20:17)
[2017-03-17 22:31] LABS: POC GLUCOSE 199 mg/dL (70-99)
[2017-03-18 06:23] LABS: POTASSIUM 3.6 mmol/L (3.5-5.1)
[2017-03-18 08:14] LABS: POC GLUCOSE 191 mg/dL (70-99)
[2017-03-18] MEDS: FUROSEMIDE 40 MG TABLET. PO ×2 (09:13→14:00)
[2017-03-18] MEDS: CHOLECALCIFEROL (VITAMIN D3) 1,000 UNIT TABLET PO (09:13)
[2017-03-18] MEDS: BISACODYL 5 MG TABLET.DR. PO (09:13)
[2017-03-18] MEDS: LACTOBACILLUS RHAMNOSUS GG 1 CAPSULE. PO ×2 (09:13→21:38)
[2017-03-18] MEDS: PANTOPRAZOLE 40 MG TABLET.DR. PO ×2 (09:13→16:30)
[2017-03-18] MEDS: tiZANidine 4 MG TABLET. PO ×3 (09:13→21:38)
[2017-03-18] MEDS: DOCUSATE SODIUM 100 MG CAPSULE. PO ×2 (09:13→21:44)
[2017-03-18] MEDS: SODIUM BICARBONATE 650 MG TABLET. PO ×3 (09:14→21:38)
[2017-03-18] MEDS: CEFPODOXIME PROXETIL 100 MG TABLET. PO (09:14)
[2017-03-18] MEDS: CALCIUM CARBONATE 500 MG TABLET PO (09:14)
[2017-03-18] MEDS: ALLOPURINOL 100 MG TABLET. PO (09:14)
[2017-03-18] MEDS: HEPARIN PF for SUB-Q USE 5,000 UNIT/0.5 ML VIAL. SQ ×2 (09:23→21:41)
[2017-03-18 12:11] LABS: POC GLUCOSE 177 mg/dL (70-99)
[2017-03-18 13:10] LABS: POTASSIUM 3.6 mmol/L (3.5-5.1)
[2017-03-18] MEDS: FUROSEMIDE 40 MG/4 ML VIAL. IVP (17:43)
[2017-03-18] MEDS: ALBUMIN HUMAN 25% 100 ML IV (17:43)
[2017-03-18 19:46] LABS: POC GLUCOSE 159 mg/dL (70-99)
[2017-03-18] MEDS: LATANOPROST 0.005% OPHTH SOLUTION 2.5ML BOTTLE. OU (21:38)
[2017-03-18] MEDS: DARBEPOETIN ALFA 60 MCG/0.3 ML DISP.SYRIN. SQ (21:42)
[2017-03-18] MEDS: oxyCODONE/APAP 5/325 1 TAB TABLET PO (22:11)
[2017-03-18 22:17] LABS: POC GLUCOSE 217 mg/dL (70-99)
[2017-03-19 06:21] LABS: ANION GAP 8 (6-14); BLOOD UREA NITROGEN 44 mg/dL (7-20); CALCIUM 8.6 mg/dL (8.5-10.1); CARBON DIOXIDE 24 mmol/L (21-32); CHLORIDE 106 mmol/L (98-107); CREATININE 2.3 mg/dL (0.6-1.0); GFR 25.1; GLUCOSE 176 mg/dL (70-99); POTASSIUM 3.5 mmol/L (3.5-5.1); SODIUM 138 mmol/L (136-145)
[2017-03-19 08:48] LABS: POC GLUCOSE 166 mg/dL (70-99)
[2017-03-19] MEDS: CALCIUM CARBONATE 500 MG TABLET PO (09:45)
[2017-03-19] MEDS: LACTOBACILLUS RHAMNOSUS GG 1 CAPSULE. PO ×2 (09:45→20:28)
[2017-03-19] MEDS: CEFPODOXIME PROXETIL 100 MG TABLET. PO (09:45)
[2017-03-19] MEDS: SODIUM BICARBONATE 650 MG TABLET. PO ×3 (09:45→20:28)
[2017-03-19] MEDS: DOCUSATE SODIUM 100 MG CAPSULE. PO ×2 (09:45→20:29)
[2017-03-19] MEDS: CHOLECALCIFEROL (VITAMIN D3) 1,000 UNIT TABLET PO (09:46)
[2017-03-19] MEDS: ALLOPURINOL 100 MG TABLET. PO (09:46)
[2017-03-19] MEDS: PANTOPRAZOLE 40 MG TABLET.DR. PO ×2 (09:46→17:44)
[2017-03-19] MEDS: tiZANidine 4 MG TABLET. PO ×3 (09:46→20:29)
[2017-03-19] MEDS: FUROSEMIDE 40 MG TABLET. PO ×2 (09:46→14:30)
[2017-03-19] MEDS: HEPARIN PF for SUB-Q USE 5,000 UNIT/0.5 ML VIAL. SQ ×2 (10:09→20:36)
[2017-03-19 11:59] LABS: POC GLUCOSE 165 mg/dL (70-99)
[2017-03-19] MEDS: oxyCODONE/APAP 5/325 1 TAB TABLET PO (14:29)
[2017-03-19] MEDS: BISACODYL 5 MG TABLET.DR. PO (14:33)
[2017-03-19 17:32] LABS: POC GLUCOSE 198 mg/dL (70-99)
[2017-03-19] MEDS: MILRINONE 20MG/100ML PREMIX 100 ML IV (19:45)
[2017-03-19] MEDS: metOLazone 2.5 MG TABLET PO (20:29)
[2017-03-19] MEDS: LATANOPROST 0.005% OPHTH SOLUTION 2.5ML BOTTLE. OU (20:29)
[2017-03-19 21:03] LABS: POC GLUCOSE 138 mg/dL (70-99)
[2017-03-19] MEDS: FUROSEMIDE 100 MG/10 ML VIAL. IVP (22:41)
[2017-03-20 05:04] LABS: ADD MAN DIFF? NO
[2017-03-20 05:13] LABS: BASO # 0.1 x10^3/uL (0.0-0.2); BASO % 1 % (0-3); EOS # 0.2 x10^3/uL (0.0-0.7); EOS % 5 % (0-3); LYMPH # 0.9 x10^3/uL (1.0-4.8); LYMPH % 19 % (24-48); MEAN CORPUSCULAR HEMOGLOBIN 26 pg (25-35); MEAN CORPUSCULAR HGB CONC 32 g/dL (31-37); MEAN CORPUSCULAR VOLUME 83 fL (79-100); MONO # 0.4 x10^3/uL (0.0-1.1); MONO % 8 % (0-9); NEUT # 3.2 x10^3uL (1.8-7.7); NEUT % 67 % (31-73); PLATELET COUNT 122 x10^3/uL (140-400); RED BLOOD COUNT 2.46 x10^6/uL (3.50-5.40); RED CELL DISTRIBUTION WIDTH 21.2 % (11.5-14.5); WHITE BLOOD COUNT 4.9 x10^3/uL (4.0-11.0)
[2017-03-20 05:19] LABS: HEMATOCRIT 20.4 % (36.0-47.0); HEMOGLOBIN 6.5 g/dL (12.0-15.5)
[2017-03-20 06:05] LABS: ANION GAP 8 (6-14); BLOOD UREA NITROGEN 47 mg/dL (7-20); CALCIUM 8.8 mg/dL (8.5-10.1); CARBON DIOXIDE 28 mmol/L (21-32); CHLORIDE 108 mmol/L (98-107); CREATININE 2.3 mg/dL (0.6-1.0); GFR 25.1; GLUCOSE 203 mg/dL (70-99); POTASSIUM 3.4 mmol/L (3.5-5.1); SODIUM 144 mmol/L (136-145)
[2017-03-20] MEDS: PANTOPRAZOLE 40 MG TABLET.DR. PO ×2 (06:33→16:13)
[2017-03-20] MEDS: DOCUSATE SODIUM 100 MG CAPSULE. PO ×2 (09:10→21:26)
[2017-03-20] MEDS: tiZANidine 4 MG TABLET. PO ×3 (09:11→21:26)
[2017-03-20] MEDS: BISACODYL 5 MG TABLET.DR. PO (09:11)
[2017-03-20] MEDS: ALLOPURINOL 100 MG TABLET. PO (09:11)
[2017-03-20] MEDS: CALCIUM CARBONATE 500 MG TABLET PO (09:11)
[2017-03-20] MEDS: HEPARIN PF for SUB-Q USE 5,000 UNIT/0.5 ML VIAL. SQ ×2 (09:11→21:39)
[2017-03-20] MEDS: FUROSEMIDE 40 MG TABLET. PO ×2 (09:11→13:48)
[2017-03-20] MEDS: LACTOBACILLUS RHAMNOSUS GG 1 CAPSULE. PO ×2 (09:11→21:26)
[2017-03-20] MEDS: CHOLECALCIFEROL (VITAMIN D3) 1,000 UNIT TABLET PO (09:11)
[2017-03-20] MEDS: SODIUM BICARBONATE 650 MG TABLET. PO ×3 (09:11→21:26)
[2017-03-20 09:48] LABS: IMMEDIATE SPIN CROSSMATCH 1 1
[2017-03-20 10:40] LABS: POC GLUCOSE 192 mg/dL (70-99)
[2017-03-20] MEDS: IRON SUCROSE COMPLEX 500 MG in IV NORMAL SALINE 250ML 250 ML IV (13:00)
[2017-03-20] MEDS: FUROSEMIDE 20 MG/2 ML VIAL. IVP (13:00)
[2017-03-20 13:19] LABS: POC GLUCOSE 195 mg/dL (70-99)
[2017-03-20] MEDS: metOLazone 2.5 MG TABLET PO (16:13)
[2017-03-20] MEDS: FUROSEMIDE 100 MG/10 ML VIAL. IVP (16:13)
[2017-03-20 16:47] LABS: POC GLUCOSE 174 mg/dL (70-99)
[2017-03-20] MEDS: MILRINONE 20MG/100ML PREMIX 100 ML IV (19:54)
[2017-03-20 20:40] LABS: POC GLUCOSE 203 mg/dL (70-99)
[2017-03-20] MEDS: LATANOPROST 0.005% OPHTH SOLUTION 2.5ML BOTTLE. OU (21:26)
[2017-03-21 04:43] LABS: ANION GAP 8 (6-14); BLOOD UREA NITROGEN 46 mg/dL (7-20); CALCIUM 9.1 mg/dL (8.5-10.1); CARBON DIOXIDE 30 mmol/L (21-32); CHLORIDE 105 mmol/L (98-107); CREATININE 2.2 mg/dL (0.6-1.0); GFR 26.5; GLUCOSE 192 mg/dL (70-99); POTASSIUM 3.3 mmol/L (3.5-5.1); SODIUM 143 mmol/L (136-145)
[2017-03-21] MEDS: PANTOPRAZOLE 40 MG TABLET.DR. PO ×2 (06:31→16:39)
[2017-03-21 09:08] LABS: POC GLUCOSE 161 mg/dL (70-99)
[2017-03-21] MEDS: SODIUM BICARBONATE 650 MG TABLET. PO ×3 (09:21→21:16)
[2017-03-21] MEDS: DOCUSATE SODIUM 100 MG CAPSULE. PO ×2 (09:21→21:16)
[2017-03-21] MEDS: FUROSEMIDE 40 MG TABLET. PO ×2 (09:22→13:50)
[2017-03-21] MEDS: tiZANidine 4 MG TABLET. PO ×3 (09:22→21:16)
[2017-03-21] MEDS: CHOLECALCIFEROL (VITAMIN D3) 1,000 UNIT TABLET PO (09:22)
[2017-03-21] MEDS: ALLOPURINOL 100 MG TABLET. PO (09:22)
[2017-03-21] MEDS: LACTOBACILLUS RHAMNOSUS GG 1 CAPSULE. PO (09:22)
[2017-03-21] MEDS: CALCIUM CARBONATE 500 MG TABLET PO (09:22)
[2017-03-21] MEDS: HEPARIN PF for SUB-Q USE 5,000 UNIT/0.5 ML VIAL. SQ ×2 (09:30→21:20)
[2017-03-21 10:19] LABS: HEMATOCRIT 24.1 % (36.0-47.0); HEMOGLOBIN 7.5 g/dL (12.0-15.5); MEAN CORPUSCULAR HEMOGLOBIN 26 pg (25-35); MEAN CORPUSCULAR HGB CONC 31 g/dL (31-37); MEAN CORPUSCULAR VOLUME 84 fL (79-100); PLATELET COUNT 135 x10^3/uL (140-400); RED BLOOD COUNT 2.87 x10^6/uL (3.50-5.40); RED CELL DISTRIBUTION WIDTH 20.6 % (11.5-14.5); WHITE BLOOD COUNT 5.4 x10^3/uL (4.0-11.0)
[2017-03-21 11:18] LABS: MAGNESIUM 1.8 mg/dL (1.8-2.4)
[2017-03-21 12:23] LABS: POC GLUCOSE 197 mg/dL (70-99)
[2017-03-21] MEDS: POTASSIUM CHLORIDE 20 MEQ TABLET.ER. PO ×2 (13:51→15:00)
[2017-03-21 17:35] LABS: POC GLUCOSE 175 mg/dL (70-99)
[2017-03-21 21:03] LABS: POC GLUCOSE 239 mg/dL (70-99)
[2017-03-21] MEDS: LATANOPROST 0.005% OPHTH SOLUTION 2.5ML BOTTLE. OU (21:15)
[2017-03-22] MEDS: MILRINONE 20MG/100ML PREMIX 100 ML IV (04:15)
[2017-03-22 06:17] LABS: ANION GAP 6 (6-14); BLOOD UREA NITROGEN 46 mg/dL (7-20); CALCIUM 9.4 mg/dL (8.5-10.1); CARBON DIOXIDE 31 mmol/L (21-32); CHLORIDE 104 mmol/L (98-107); CREATININE 2.3 mg/dL (0.6-1.0); GFR 25.1; GLUCOSE 225 mg/dL (70-99); MAGNESIUM 1.8 mg/dL (1.8-2.4); POTASSIUM 3.6 mmol/L (3.5-5.1); SODIUM 141 mmol/L (136-145)
[2017-03-22 07:42] LABS: POC GLUCOSE 195 mg/dL (70-99)
[2017-03-22] MEDS: ALLOPURINOL 100 MG TABLET. PO (09:06)
[2017-03-22] MEDS: tiZANidine 4 MG TABLET. PO ×3 (09:07→21:10)
[2017-03-22] MEDS: CALCIUM CARBONATE 500 MG TABLET PO (09:07)
[2017-03-22] MEDS: POTASSIUM CHLORIDE 20 MEQ TABLET.ER. PO (09:07)
[2017-03-22] MEDS: CHOLECALCIFEROL (VITAMIN D3) 1,000 UNIT TABLET PO (09:07)
[2017-03-22] MEDS: PANTOPRAZOLE 40 MG TABLET.DR. PO ×2 (09:07→14:34)
[2017-03-22] MEDS: SODIUM BICARBONATE 650 MG TABLET. PO ×3 (09:07→21:10)
[2017-03-22] MEDS: DOCUSATE SODIUM 100 MG CAPSULE. PO ×2 (09:08→21:11)
[2017-03-22] MEDS: FUROSEMIDE 40 MG TABLET. PO ×2 (09:08→13:10)
[2017-03-22] MEDS: HEPARIN PF for SUB-Q USE 5,000 UNIT/0.5 ML VIAL. SQ ×2 (09:13→21:15)
[2017-03-22] MEDS: metOLazone 2.5 MG TABLET PO (10:59)
[2017-03-22 12:28] LABS: POC GLUCOSE 200 mg/dL (70-99)
[2017-03-22] MEDS: FUROSEMIDE 40 MG/4 ML VIAL. IVP (12:48)
[2017-03-22 16:53] LABS: POC GLUCOSE 202 mg/dL (70-99)
[2017-03-22 21:06] LABS: POC GLUCOSE 212 mg/dL (70-99)
[2017-03-22] MEDS: LATANOPROST 0.005% OPHTH SOLUTION 2.5ML BOTTLE. OU (21:10)
[2017-03-23 07:35] LABS: POC GLUCOSE 187 mg/dL (70-99)
[2017-03-23] MEDS: POTASSIUM CHLORIDE 20 MEQ TABLET.ER. PO (09:00)
[2017-03-23] MEDS: DOCUSATE SODIUM 100 MG CAPSULE. PO ×2 (09:05→21:01)
[2017-03-23] MEDS: tiZANidine 4 MG TABLET. PO ×3 (09:05→21:01)
[2017-03-23] MEDS: CHOLECALCIFEROL (VITAMIN D3) 1,000 UNIT TABLET PO (09:05)
[2017-03-23] MEDS: PANTOPRAZOLE 40 MG TABLET.DR. PO ×2 (09:05→16:30)
[2017-03-23] MEDS: SODIUM BICARBONATE 650 MG TABLET. PO ×3 (09:05→21:01)
[2017-03-23] MEDS: ALLOPURINOL 100 MG TABLET. PO (09:05)
[2017-03-23] MEDS: FUROSEMIDE 40 MG TABLET. PO ×2 (09:05→14:54)
[2017-03-23] MEDS: CALCIUM CARBONATE 500 MG TABLET PO (09:05)
[2017-03-23] MEDS: HEPARIN PF for SUB-Q USE 5,000 UNIT/0.5 ML VIAL. SQ ×2 (09:14→21:03)
[2017-03-23] MEDS: metOLazone 2.5 MG TABLET PO (10:31)
[2017-03-23] MEDS: MILRINONE 20MG/100ML PREMIX 100 ML IV (10:31)
[2017-03-23 12:07] LABS: POC GLUCOSE 228 mg/dL (70-99)
[2017-03-23 17:36] LABS: POC GLUCOSE 225 mg/dL (70-99)
[2017-03-23] MEDS: LATANOPROST 0.005% OPHTH SOLUTION 2.5ML BOTTLE. OU (21:01)
[2017-03-23 21:31] LABS: POC GLUCOSE 233 mg/dL (70-99)
[2017-03-24 08:02] LABS: POC GLUCOSE 197 mg/dL (70-99)
[2017-03-24] MEDS: CALCIUM CARBONATE 500 MG TABLET PO (09:27)
[2017-03-24] MEDS: FUROSEMIDE 40 MG TABLET. PO ×2 (09:27→16:13)
[2017-03-24] MEDS: PANTOPRAZOLE 40 MG TABLET.DR. PO ×2 (09:27→16:13)
[2017-03-24] MEDS: DOCUSATE SODIUM 100 MG CAPSULE. PO ×2 (09:28→21:39)
[2017-03-24] MEDS: SODIUM BICARBONATE 650 MG TABLET. PO ×3 (09:29→21:39)
[2017-03-24] MEDS: metOLazone 2.5 MG TABLET PO (09:29)
[2017-03-24] MEDS: POTASSIUM CHLORIDE 20 MEQ TABLET.ER. PO (09:29)
[2017-03-24] MEDS: tiZANidine 4 MG TABLET. PO ×3 (09:29→21:39)
[2017-03-24] MEDS: BISACODYL 5 MG TABLET.DR. PO (09:29)
[2017-03-24] MEDS: ALLOPURINOL 100 MG TABLET. PO (09:29)
[2017-03-24] MEDS: CHOLECALCIFEROL (VITAMIN D3) 1,000 UNIT TABLET PO (09:29)
[2017-03-24] MEDS: HEPARIN PF for SUB-Q USE 5,000 UNIT/0.5 ML VIAL. SQ ×2 (09:42→21:40)
[2017-03-24] MEDS: oxyCODONE/APAP 5/325 1 TAB TABLET PO (09:44)
[2017-03-24 12:00] LABS: POC GLUCOSE 214 mg/dL (70-99)
[2017-03-24 13:43] LABS: ADD MAN DIFF? NO
[2017-03-24 13:52] LABS: ANION GAP -1 (6-14); BLOOD UREA NITROGEN 43 mg/dL (7-20); CALCIUM 9.5 mg/dL (8.5-10.1); CARBON DIOXIDE 37 mmol/L (21-32); CHLORIDE 103 mmol/L (98-107); CREATININE 2.2 mg/dL (0.6-1.0); GFR 26.5; GLUCOSE 230 mg/dL (70-99); MAGNESIUM 1.8 mg/dL (1.8-2.4); POTASSIUM 4.2 mmol/L (3.5-5.1); SODIUM 139 mmol/L (136-145)
[2017-03-24 14:00] LABS: BASO % 1 % (0-3); EOS # 0.2 x10^3/uL (0.0-0.7); EOS % 5 % (0-3); HEMATOCRIT 27.2 % (36.0-47.0); HEMOGLOBIN 8.4 g/dL (12.0-15.5); LYMPH # 1.2 x10^3/uL (1.0-4.8); LYMPH % 22 % (24-48); MEAN CORPUSCULAR HEMOGLOBIN 26 pg (25-35); MEAN CORPUSCULAR HGB CONC 31 g/dL (31-37); MEAN CORPUSCULAR VOLUME 85 fL (79-100); MONO # 0.3 x10^3/uL (0.0-1.1); MONO % 6 % (0-9); NEUT # 3.5 x10^3uL (1.8-7.7); NEUT % 66 % (31-73); PLATELET COUNT 187 x10^3/uL (140-400); WHITE BLOOD COUNT 5.3 x10^3/uL (4.0-11.0)
[2017-03-24 14:27] LABS: ANISOCYTOSIS MOD; PLT ESTIMATE ADEQUATE (ADEQUATE); POLYCHROMASIA SLIGHT; SCHISTOCYTES FEW
[2017-03-24 18:24] LABS: POC GLUCOSE 223 mg/dL (70-99)
[2017-03-24 21:09] LABS: POC GLUCOSE 202 mg/dL (70-99)
[2017-03-24] MEDS: LATANOPROST 0.005% OPHTH SOLUTION 2.5ML BOTTLE. OU (21:39)
[2017-03-25 07:29] LABS: ALBUMIN 2.1 g/dL (3.4-5.0); ANION GAP 0 (6-14); BLOOD UREA NITROGEN 44 mg/dL (7-20); CALCIUM 9.4 mg/dL (8.5-10.1); CARBON DIOXIDE 38 mmol/L (21-32); CHLORIDE 102 mmol/L (98-107); CREATININE 2.3 mg/dL (0.6-1.0); GFR 25.1; GLUCOSE 221 mg/dL (70-99); MAGNESIUM 1.6 mg/dL (1.8-2.4); PHOSPHORUS 3.2 mg/dL (2.6-4.7); POTASSIUM 3.9 mmol/L (3.5-5.1); SODIUM 140 mmol/L (136-145)
[2017-03-25 08:37] LABS: POC GLUCOSE 189 mg/dL (70-99)
[2017-03-25] MEDS: CHOLECALCIFEROL (VITAMIN D3) 1,000 UNIT TABLET PO (09:00)
[2017-03-25] MEDS: metOLazone 2.5 MG TABLET PO (09:34)
[2017-03-25] MEDS: POTASSIUM CHLORIDE 20 MEQ TABLET.ER. PO (09:34)
[2017-03-25] MEDS: CALCIUM CARBONATE 500 MG TABLET PO (09:34)
[2017-03-25] MEDS: SODIUM BICARBONATE 650 MG TABLET. PO ×3 (09:34→21:13)
[2017-03-25] MEDS: PANTOPRAZOLE 40 MG TABLET.DR. PO ×2 (09:35→16:30)
[2017-03-25] MEDS: ALLOPURINOL 100 MG TABLET. PO (09:35)
[2017-03-25] MEDS: DOCUSATE SODIUM 100 MG CAPSULE. PO ×2 (09:35→21:12)
[2017-03-25] MEDS: FUROSEMIDE 40 MG TABLET. PO ×3 (09:35→14:52)
[2017-03-25] MEDS: tiZANidine 4 MG TABLET. PO ×3 (09:35→21:12)
[2017-03-25] MEDS: HEPARIN PF for SUB-Q USE 5,000 UNIT/0.5 ML VIAL. SQ ×2 (09:39→21:22)
[2017-03-25 12:32] LABS: POC GLUCOSE 263 mg/dL (70-99)
[2017-03-25] MEDS: FUROSEMIDE 40 MG/4 ML VIAL. IVP (14:15)
[2017-03-25] MEDS: MAGNESIUM SULFATE 2GM 50 ML IV (14:54)
[2017-03-25] MEDS: oxyCODONE/APAP 5/325 1 TAB TABLET PO (15:47)
[2017-03-25 17:22] LABS: POC GLUCOSE 239 mg/dL (70-99)
[2017-03-25] MEDS: LATANOPROST 0.005% OPHTH SOLUTION 2.5ML BOTTLE. OU (21:13)
[2017-03-25] MEDS: DARBEPOETIN ALFA 60 MCG/0.3 ML DISP.SYRIN. SQ (21:13)
[2017-03-25 21:29] LABS: POC GLUCOSE 219 mg/dL (70-99)
[2017-03-26 05:25] LABS: ADD MAN DIFF? NO
[2017-03-26 05:50] LABS: BASO % 1 % (0-3); EOS # 0.3 x10^3/uL (0.0-0.7); EOS % 7 % (0-3); HEMATOCRIT 25.1 % (36.0-47.0); HEMOGLOBIN 7.8 g/dL (12.0-15.5); LYMPH # 1.2 x10^3/uL (1.0-4.8); LYMPH % 29 % (24-48); MEAN CORPUSCULAR HEMOGLOBIN 26 pg (25-35); MEAN CORPUSCULAR HGB CONC 31 g/dL (31-37); MEAN CORPUSCULAR VOLUME 85 fL (79-100); MONO # 0.3 x10^3/uL (0.0-1.1); MONO % 8 % (0-9); NEUT # 2.2 x10^3uL (1.8-7.7); NEUT % 55 % (31-73); PLATELET COUNT 168 x10^3/uL (140-400); RED BLOOD COUNT 2.97 x10^6/uL (3.50-5.40); RED CELL DISTRIBUTION WIDTH 21.5 % (11.5-14.5)
[2017-03-26 06:05] LABS: ALBUMIN 2.1 g/dL (3.4-5.0); ANION GAP 5 (6-14); BLOOD UREA NITROGEN 44 mg/dL (7-20); CALCIUM 9.6 mg/dL (8.5-10.1); CARBON DIOXIDE 35 mmol/L (21-32); CHLORIDE 102 mmol/L (98-107); CREATININE 2.5 mg/dL (0.6-1.0); GFR 22.8; GLUCOSE 232 mg/dL (70-99); MAGNESIUM 1.6 mg/dL (1.8-2.4); POTASSIUM 3.9 mmol/L (3.5-5.1); SODIUM 142 mmol/L (136-145)
[2017-03-26] MEDS: SODIUM BICARBONATE 650 MG TABLET. PO (08:59)
[2017-03-26] MEDS: oxyCODONE/APAP 5/325 1 TAB TABLET PO (08:59)
[2017-03-26] MEDS: CHOLECALCIFEROL (VITAMIN D3) 1,000 UNIT TABLET PO (08:59)
[2017-03-26] MEDS: DOCUSATE SODIUM 100 MG CAPSULE. PO (09:00)
[2017-03-26] MEDS: BISACODYL 5 MG TABLET.DR. PO (09:00)
[2017-03-26] MEDS: POTASSIUM CHLORIDE 20 MEQ TABLET.ER. PO (09:00)
[2017-03-26] MEDS: tiZANidine 4 MG TABLET. PO (09:00)
[2017-03-26] MEDS: PANTOPRAZOLE 40 MG TABLET.DR. PO (09:01)
[2017-03-26] MEDS: MAGNESIUM OXIDE 400 MG TABLET PO (09:01)
[2017-03-26] MEDS: metOLazone 2.5 MG TABLET PO (09:01)
[2017-03-26] MEDS: FUROSEMIDE 40 MG TABLET. PO (09:01)
[2017-03-26] MEDS: CALCIUM CARBONATE 500 MG TABLET PO (09:01)
[2017-03-26] MEDS: ALLOPURINOL 100 MG TABLET. PO (09:01)
[2017-03-26] MEDS: MAGNESIUM SULFATE 2GM 50 ML IV (09:06)
[2017-03-26] MEDS: HEPARIN PF for SUB-Q USE 5,000 UNIT/0.5 ML VIAL. SQ (09:13)
[2017-03-26 12:28] LABS: POC GLUCOSE 225 mg/dL (70-99)
[2017-03-26 16:52] LABS: POC GLUCOSE 211 mg/dL (70-99)
[2017-03-27] MEDS ORDERED: MAGNESIUM OXIDE 400 MG TABLET PO (09:00)
== END 2017-03-26 14:05 | disposition hospice, home (50) | DRG 682 ==
LOC: 1 WEST ICU 03-08 19:48 → 2 SOUTH 03-14 13:35 → ER 09:46 → 2 SOUTH 13:00
PROC: 5A09357 Assistance with Respiratory Ventilation, Less than 24 Consecutive Hours, Continuous Positive Airway Pressure (ICD-10-PCS; 2017-03-06)
PROC: 5A09357 Assistance with Respiratory Ventilation, Less than 24 Consecutive Hours, Continuous Positive Airway Pressure (ICD-10-PCS; 2017-03-06)
PROC: 5A09357 Assistance with Respiratory Ventilation, Less than 24 Consecutive Hours, Continuous Positive Airway Pressure (ICD-10-PCS; 2017-03-06)
PROC: 5A09357 Assistance with Respiratory Ventilation, Less than 24 Consecutive Hours, Continuous Positive Airway Pressure (ICD-10-PCS; 2017-03-06)
PROC: 5A09357 Assistance with Respiratory Ventilation, Less than 24 Consecutive Hours, Continuous Positive Airway Pressure (ICD-10-PCS; 2017-03-06)
PROC: 5A09357 Assistance with Respiratory Ventilation, Less than 24 Consecutive Hours, Continuous Positive Airway Pressure (ICD-10-PCS; 2017-03-06)
PROC: 5A09357 Assistance with Respiratory Ventilation, Less than 24 Consecutive Hours, Continuous Positive Airway Pressure (ICD-10-PCS; 2017-03-06)
PROC: 5A09357 Assistance with Respiratory Ventilation, Less than 24 Consecutive Hours, Continuous Positive Airway Pressure (ICD-10-PCS; 2017-03-06)
PROC: 5A09357 Assistance with Respiratory Ventilation, Less than 24 Consecutive Hours, Continuous Positive Airway Pressure (ICD-10-PCS; 2017-03-06)
PROC: 5A09357 Assistance with Respiratory Ventilation, Less than 24 Consecutive Hours, Continuous Positive Airway Pressure (ICD-10-PCS; 2017-03-06)
PROC: 5A09357 Assistance with Respiratory Ventilation, Less than 24 Consecutive Hours, Continuous Positive Airway Pressure (ICD-10-PCS; 2017-03-06)
PROC: 5A09357 Assistance with Respiratory Ventilation, Less than 24 Consecutive Hours, Continuous Positive Airway Pressure (ICD-10-PCS; 2017-03-06)
PROC: 5A09357 Assistance with Respiratory Ventilation, Less than 24 Consecutive Hours, Continuous Positive Airway Pressure (ICD-10-PCS; 2017-03-06)
PROC: 5A09357 Assistance with Respiratory Ventilation, Less than 24 Consecutive Hours, Continuous Positive Airway Pressure (ICD-10-PCS; 2017-03-06)
PROC: 5A09357 Assistance with Respiratory Ventilation, Less than 24 Consecutive Hours, Continuous Positive Airway Pressure (ICD-10-PCS; 2017-03-06)
PROC: 5A09357 Assistance with Respiratory Ventilation, Less than 24 Consecutive Hours, Continuous Positive Airway Pressure (ICD-10-PCS; 2017-03-06)
PROC: 5A09357 Assistance with Respiratory Ventilation, Less than 24 Consecutive Hours, Continuous Positive Airway Pressure (ICD-10-PCS; 2017-03-06)
PROC: 30233N1 Transfusion of Nonautologous Red Blood Cells into Peripheral Vein, Percutaneous Approach (ICD-10-PCS; 2017-03-06)
PROC: 02H633Z Insertion of Infusion Device into Right Atrium, Percutaneous Approach (ICD-10-PCS; 2017-03-10)
PROC: B244ZZZ Ultrasonography of Right Heart (ICD-10-PCS; 2017-03-10)
PROC: 5A1D70Z Performance of Urinary Filtration, Intermittent, Less than 6 Hours Per Day (ICD-10-PCS; principal; 2017-03-11)
PROC: 5A1D70Z Performance of Urinary Filtration, Intermittent, Less than 6 Hours Per Day (ICD-10-PCS; 2017-03-12)
PROC: 02HV33Z Insertion of Infusion Device into Superior Vena Cava, Percutaneous Approach (ICD-10-PCS; 2017-03-17)
PROC: B5181ZA Fluoroscopy of Superior Vena Cava using Low Osmolar Contrast, Guidance (ICD-10-PCS; 2017-03-17)
DX: N17.9 Acute kidney failure, unspecified (principal); J96.01 Acute respiratory failure with hypoxia; E43 Unspecified severe protein-calorie malnutrition; I13.2 Hypertensive heart and chronic kidney disease with heart failure and with stage 5 chronic kidney disease, or end stage renal disease; R57.1 Hypovolemic shock; D69.6 Thrombocytopenia, unspecified; E11.22 Type 2 diabetes mellitus with diabetic chronic kidney disease; R57.0 Cardiogenic shock; E11.649 Type 2 diabetes mellitus with hypoglycemia without coma; I50.43 Acute on chronic combined systolic (congestive) and diastolic (congestive) heart failure; I42.9 Cardiomyopathy, unspecified; N18.6 End stage renal disease; D63.1 Anemia in chronic kidney disease; Z68.26 Body mass index [BMI] 26.0-26.9, adult; E87.5 Hyperkalemia; E87.6 Hypokalemia; H40.9 Unspecified glaucoma; I27.29 Other secondary pulmonary hypertension; I48.91 Unspecified atrial fibrillation; I50.82 Biventricular heart failure; M17.10 Unilateral primary osteoarthritis, unspecified knee; T50.1X5A Adverse effect of loop [high-ceiling] diuretics, initial encounter; Z66 Do not resuscitate; Z83.3 Family history of diabetes mellitus; Z85.3 Personal history of malignant neoplasm of breast; Z87.11 Personal history of peptic ulcer disease; Z95.810 Presence of automatic (implantable) cardiac defibrillator; M10.9 Gout, unspecified; Z90.12 Acquired absence of left breast and nipple; M54.5 Low back pain; Z51.5 Encounter for palliative care
CPT/HCPCS: 36415; 36556; 36600; 71045; 71046; 73502; 73560; 74018; 76937; 77001; 80048; 80053; 80069; 81001; 82550; 82805; 82962; 83605; 83735; 83880; 84100; 84132; 84484; 85007; 85018; 85025; 85027; 85610; 86706; 86850; 86900; 86901; 86920; 87340; 87641; 87804; 87804-59; 93005; 93308; 93970; 94660; 94760; 96374; 97110-GO; 97110-GP; 97116-GP; 97162-GP; 97167-GO; 97168-GO; 97530-GO; 97530-GP; 99285; 99285-25; C1769; C1892; J0282; J0696; J0881; J1265; J1756; J1815; J1940; J2260; J2270; J3010; J3480; J7030; J7050; J7060; P9016; P9046